=== PATIENT | female | born 1970 | race Caucasian/White ===

== ENCOUNTER 2019-02-27 05:30 | Outpatient (CLI) | payer BC, OTHER ==
[2019-02-25 12:10] LABS: BASOPHILS 0.7 % (0-2); EOSINOPHILS 6.4 % (0-7); HEMATOCRIT 38.2 % (36.0-48.0); HEMOGLOBIN 12.6 g/dL (12-16); IMMATURE GRANULOCYTES 0.3 % (0-5); LYMPHOCYTES 28.7 % (15-50); MCH 30.2 pg (26.0-34.0); MCV 91.6 fL (80.0-100.0); MEAN PLATELET VOLUME 8.5 fL (7.4-10.4); MONOCYTES 5.9 % (2-11); PLATELET COUNT 266 10x3/uL (130-400); RBC 4.17 10x6/uL (4.00-5.40); RDW 12.8 % (11.5-14.5); WBC 6.8 10x3/uL (4.8-10.8)
[2019-02-25 12:27] LABS: ANION GAP 11.1 mmol/L (8-16); CARBON DIOXIDE 29.1 mmol/L (21.0-32.0); CREATININE - SERUM 0.9 mg/dL (0.6-1.3); POTASSIUM - SERUM 4.2 mmol/L (3.5-5.1)
[~2019-02-27] VITALS: Ht 165.1 cm; Wt 103.0 kg
[~2019-02-27 05:30] MED LIST: MUCINEX600 MG PO; VITAMIN D250000 UNIT PO
[2019-02-27 06:34] LABS: HCG URINE NEGATIVE (NEGATIVE)
[2019-02-27 07:00] VITALS: BP 126/78; Ht 165.1 cm; Wt 103.0 kg
--- NOTE | 2019-02-27 13:53 | NUR ---
1045 DR GORDON CORPORATE TREASURER CAME TO TALK WITH PT ABOUT RESCHEDULING SURGERY. PT WANTED TO WAIT NO TIME GIVEN TO PT. 1230 PT DIDNT WANT TO STAY AND WANTED TO CANCEL SURGERY, SURGERY NOTIFIED AND IV REMOVED. 1245 PT D/C HOME WITH RESCHEDULED TIME
== END 2019-02-27 10:50 | disposition home or self-care (01) ==
LOC: D.OPS 05:30 → D.PAN 07:30 → EDSTATUS 07:30 → D.OPS 10:50
PROVIDERS: ATTEND Student in an Organized Health Care Education/Training Program
DX: N92.0 Excessive and frequent menstruation with regular cycle (principal); D25.9 Leiomyoma of uterus, unspecified; Z53.29 Procedure and treatment not carried out because of patient's decision for other reasons

== ENCOUNTER 2019-04-24 05:00 | Day surgery (SDC) | payer MEDICARE ==
[2019-04-22 15:57] LABS: BASOPHILS 0.4 % (0-2); EOSINOPHILS 2.5 % (0-7); HEMATOCRIT 38.4 % (36.0-48.0); HEMOGLOBIN 13.1 g/dL (12-16); IMMATURE GRANULOCYTES 0.3 % (0-5); LYMPHOCYTES 28.2 % (15-50); MCH 30.3 pg (26.0-34.0); MCHC 34.1 g/dL (31.0-37.0); MCV 88.9 fL (80.0-100.0); MEAN PLATELET VOLUME 8.5 fL (7.4-10.4); MONOCYTES 6.2 % (2-11); NEUTROPHILS 62.4 % (40-80); PLATELET COUNT 288 10x3/uL (130-400); RBC 4.32 10x6/uL (4.00-5.40); RDW 12.6 % (11.5-14.5); WBC 7.9 10x3/uL (4.8-10.8)
[2019-04-22 16:08] LABS: CALCIUM 9.2 mg/dL (8.5-10.1); CARBON DIOXIDE 26.5 mmol/L (21.0-32.0); CREATININE - SERUM 1.2 mg/dL (0.6-1.3); POTASSIUM - SERUM 3.5 mmol/L (3.5-5.1)
[~2019-04-24] VITALS: Ht 165.1 cm; Wt 102.7 kg
[2019-04-24] VITALS (11 sets, daily range): BP systolic 110–145; BP diastolic 62–88; BMI 37.8
[2019-04-24 05:58] LABS: HCG URINE NEGATIVE (NEGATIVE)
--- NOTE | 2019-04-24 10:10 | NUR ---
ILDEFONSO REF [id number] LOT [id number] EXP 01/10/2024
--- NOTE | 2019-04-24 13:02 | NUR ---
SITTING UP, TALKING, VISITOR AT BEDSIDE. ICE CHIPS GIVEN. NO C/O PAIN AT THIS TIME.
--- NOTE | 2019-04-24 14:23 | NUR ---
SITTING UP IN BED, FAMILY AT BEDSIDE. HAD PATIENT DEMONSTRATE INCENTIVE SPIROMETER. ABLE TO MEET PARAMETERS ON DEVICE. INSTRUCTED TO USE SPIROMETER 5-6X PER HOUR, TAKING 3-4 DEEP BREATHS WITH EACH USE. STATE UNDERSTANDING.
--- NOTE | 2019-04-24 16:00 | NUR ---
IV SALINE LOCKED. MELGAR D/C'D. MOTRIN GIVEN. DAUGHTER AT BEDSIDE. ENCOURAGED PATIENT TO AMBULATE.
--- NOTE | 2019-04-24 18:00 | NUR ---
NAUSEATED AND VOMITING. OFFERED MEDICATION.
--- NOTE | 2019-04-24 18:40 | NUR ---
C/O PAIN. PO PAIN MED GIVEN. STATES HAS BEEN USING INCENTIVE SPIROMETER. HAS AMBULATED IN THE [place] X1 AND IN HER ROOM. VOIDING WITHOUT DIFFICULTY.
--- NOTE | 2019-04-24 20:19 | NUR ---
PT IS SITTING ON SIDE OF THE BED TALKING WITH DAUGHTER. SHE HAS NO PAIN AT THIS TIME. HEART SOUNDS WNL, LUNGS CLEAR, BS NEGATIVE. PT IS USING HER INCENTIVE SPIROMETER EVERY HOUR SHE STATES. SHE IS UP IN HER ROOM AD PATIENCE. SHE IS NOT WEARING HER SCD'S AND DOES NOT WANT THEM PLACED AT THIS TIME. SHE IS EATING AND DRINKING WITHOUT PROBLEMS. INCISION SITE LOOKS GOOD. NO DRAINAGE NOTED. SHE HAS SCANT BLEEDING ON HER PAD.
--- NOTE | 2019-04-24 21:00 | NUR ---
PT WALKED HER DAUGHTER TO THE EXIT OF WOMEN[facility]S SERVICES. SHE AMBULATES WELL.
--- NOTE | 2019-04-24 21:56 | NUR ---
PT GIVEN HER SCHEDULED MOTRIN. SHE RATES HER PAIN A 4. PT ALSO REQUESTED THE AMBIEN THAT IS ORDERED FOR HER. SHE STATES THE PERCOCET "WIRES" HER. SHE HOPES TO SLEEP WITH THE MEDICATION.
--- NOTE | 2019-04-24 22:40 | NUR ---
CHECKED ON PT TO SEE IF SHE WAS SLEEPING. SHE IS AWAKE WATCHING TV BUT STATES IT WON'T BE LONG BEFORE SHE GOES TO SLEEP. NO C/0 OR NEEDS AT THIS TIME. WATER WAS SERVED.
--- NOTE | 2019-04-25 | NUR ---
CHECKED IN ON PT. SHE IS RESTING QUIETLY WITH HER EYES CLOSED.
[2019-04-25 00:30] VITALS: BP 110/60
--- NOTE | 2019-04-25 02:07 | NUR ---
PT IS RESTING QUIETLY WITHOUT C/0.
[2019-04-25 04:04] VITALS: BP 117/65
--- NOTE | 2019-04-25 04:08 | NUR ---
VS TAKEN AND RECORDED. PT STATES SHE IS STARTING TO HAVE PAIN AT HER INCISION SITE. SCHEDULED MOTRIN GIVEN PO AND PT REQUEST A PERCOCET. 10 MG PERCOCET GIVEN PO. PT STATES SHE HAS SLEPT WELL AFTER TAKING AMBIEN LAST NIGHT. SHE HAS BEEN UP TO VOID X 1.
--- NOTE | 2019-04-25 06:00 | NUR ---
PT RESTING WITH EYES CLOSED. NO C/O OR NEEDS AT THIS TIME.
[2019-04-25 07:14] LABS: BASOPHILS 0.2 % (0-2); EOSINOPHILS 0 % (0-7); HEMATOCRIT 33.2 % (36.0-48.0); HEMOGLOBIN 10.8 g/dL (12-16); IMMATURE GRANULOCYTES 0.2 % (0-5); LYMPHOCYTES 12.2 % (15-50); MCH 29.8 pg (26.0-34.0); MCHC 32.5 g/dL (31.0-37.0); MCV 91.5 fL (80.0-100.0); MEAN PLATELET VOLUME 8.6 fL (7.4-10.4); MONOCYTES 6.4 % (2-11); PLATELET COUNT 244 10x3/uL (130-400); RBC 3.63 10x6/uL (4.00-5.40); RDW 12.6 % (11.5-14.5); WBC 13.1 10x3/uL (4.8-10.8)
--- NOTE | 2019-04-25 07:27 | NUR ---
RECEIVED SHIFT REPORT FROM MARK GONAZLEZ RN, INFORMED PT THAT I WILL BE BACK SHORTLY TO DO ASSESSMENT, PT VERBALIZES UNDERSTANDING, DENIES NEEDS, BREAKFAST SERVED
[2019-04-25 08:15] VITALS: BP 118/70
--- NOTE | 2019-04-25 08:15 | NUR ---
ASSESSMENT PER ADMISSION FLOW SHEET, ADMISSION FLOW SHEET FILLED OUT AT 0847, VS OBTAINED, SALINE LOCK IN LEFT HAND INTACT WITH NO REDNESS OR EDEMA, UMBILICAL INC AND 2 LOWER LAP INC WITH DERMABOND CDI WITH NO DRAINAGE NOTED, PT INST ON INC CARE, PT VERBALIZES UNDERSTANDING, PT REPORTS FLATUS, NO BM, VOIDING WITH NO DIFFICULTY, AND SCANT VAG BLEEDING, PT C/O CRAMPING, WILL ADM PAIN MED, BREAKFAST TRAY REMOVED
--- NOTE | 2019-04-25 08:27 | NUR ---
ADM PERCOCET PER MD ORDERS, SEE EMAR, PT DENIES FURTHER NEEDS
[2019-04-25 08:49] VITALS: BP 118/70; Ht 165.1 cm; Wt 102.7 kg
--- NOTE | 2019-04-25 09:05 | NUR ---
PT RESTING, DR MUÑOZ WAS IN TO SEE PT, WILL DO A CBC AT NOON, PT RATES PAIN 08/22, PT INQUIRES ABOUT A ABD BINDER, INFORMED PT THAT I WILL CHECK ON THAT, DENIES FURTHER NEEDS AT THIS TIME
--- NOTE | 2019-04-25 09:59 | NUR ---
PT AWAKE, LOOKING AT CELL PHONE, ADM JEAN PER MD ORDERS, SEE EMAR, PT DENIES NEEDS AT THIS TIME
--- NOTE | 2019-04-25 11:00 | NUR ---
PT AWAKE, REPORTS JUST DOZING, RATES CRAMPING 3/10, DENIES NEEDS AT THIS TIME
--- NOTE | 2019-04-25 12:22 | NUR ---
PT SITTING UP IN BED, JUST GETTING READY TO EAT LUNCH, PT INST TO USE CALL LIGHT WHEN FINISHED AND I WILL DO VS AND ADM PAIN MED IF NEEDED, PT VERBALIZES UNDERSTANDING, DENIES NEEDS AT THIS TIME
[2019-04-25 12:26] LABS: BASOPHILS 0.2 % (0-2); EOSINOPHILS 0.3 % (0-7); HEMATOCRIT 31.9 % (36.0-48.0); HEMOGLOBIN 10.1 g/dL (12-16); IMMATURE GRANULOCYTES 0.3 % (0-5); LYMPHOCYTES 15.9 % (15-50); MCH 29.2 pg (26.0-34.0); MCHC 31.7 g/dL (31.0-37.0); MCV 92.2 fL (80.0-100.0); MEAN PLATELET VOLUME 8.3 fL (7.4-10.4); MONOCYTES 5.2 % (2-11); NEUTROPHILS 78.1 % (40-80); PLATELET COUNT 207 10x3/uL (130-400); RBC 3.46 10x6/uL (4.00-5.40); RDW 12.9 % (11.5-14.5); WBC 10.8 10x3/uL (4.8-10.8)
--- NOTE | 2019-04-25 12:58 | OP ---
PATIENT NAME: ENRIQUETA BASILIO MEDICAL RECORD: [id number] :66 LOCATION:[facility] ADMISSION DATE: SURGEON: CAROLINE MUÑOZ DO DATE OF OPERATION: 04/24/2019 PREOPERATIVE DIAGNOSIS: Fibroid uterus. POSTOPERATIVE DIAGNOSIS: Fibroid uterus. PRIMARY SURGEON: Caroline Muñoz DO DIRECTOR PHONE SURGEON: Dr. Rogers. ANESTHESIA: Carlyle Dyer CRNA PROCEDURE: Total laparoscopic hysterectomy, bilateral salpingo-oophorectomy. FINDINGS: Normal appearing external genitalia, normal appearing vaginal vault. Normal appearing cervix. Uterus sounded to 8 cm. Enlarged fibroid uterus, normal appearing bilateral fallopian tubes, and bilateral ovaries. SPECIMENS: Uterus, cervix, bilateral fallopian tubes, and bilateral ovaries. ESTIMATED BLOOD LOSS: 75 cc. IV FLUIDS: 1800 cc. URINE OUTPUT: 125 cc clear urine. COMPLICATIONS: None. CONDITION: Stable. PROCEDURE: The risks, benefits, alternatives, and indications of the procedure were discussed with the patient. She voiced understanding of the procedure and signed a consent. She was taken to the OR where general anesthesia was administered and found to be adequate. She was placed in the dorsal lithotomy position. She was prepped and draped in normal sterile fashion. A Evans catheter was placed under sterile conditions. A speculum was placed in the posterior aspect of the vagina and a single tooth tenaculum was used to grasp the anterior lip of the cervix. The uterus was sounded to 8 cm. The cervix was further dilated to accommodate the VCare uterine manipulator. The VCare uterine manipulator was placed and all other instruments were removed from the vagina. Gloves were changed and attention was then turned to the abdomen. The abdomen was elevated. Marcaine was placed in the umbilical fold and a 5-mm incision was made with the scalpel in the umbilical fold. A 5-mm port was placed with the laparoscope for visualization. Pneumoperitoneum was established to 15 mmHg. The uterus was elevated out of the pelvis and steep Trendelenburg position was used to displace the bowel out of the pelvis. Uterine cornua was grasped with an atraumatic grasper and the uterus was gently retracted to the opposite side. The infundibulopelvic ligament was noted on the left side and the ureter was seen across the external iliac artery and pelvic brim with peristalsis. The Thunderbeat was used to coagulate the IP ligament and cut with good hemostasis. With the uterus and adnexa retracted to the opposite side, the round and broad ligaments were sequentially clamped and cut. The vesicouterine peritoneum was OPERATIVE REPORT [id number] ENRIQUETA BASILIO and the bladder was dissected off the lower uterine segment and upper vagina. The uterine vessels were identified along the uterus and the Thunderbeat device was used to coagulate and cut the uterine vessels. The entire procedure was repeated on the right side with the SEA uterine manipulator pushing the uterus into the pelvis, the cervicovaginal junction was then delineated by the colpotomy ring, which was apparent through the tissue. The vagina was entered with a Thunderbeat and incised circumferentially along the cervicovaginal junction. The uterosacral and cardinal ligament complexes and vagina were completely detached from the cervix. Bleeding spots were coagulated. The uterus, tubes, and ovaries were removed through the vagina. The vaginal cuff was closed laparoscopically with interrupted stitches with the EndoStitch device with good hemostasis noted. All the pedicles were reinspected and noted to be hemostatic. The pelvis was irrigated with warm sterile water and again good hemostasis was noted. Diony was placed. The patient was taken out of Trendelenburg position. All instruments were removed from the abdomen. The skin incision was closed with 3-0 Monocryl with Dermabond covering and good hemostasis. The patient tolerated the procedure well. All needle, lap, sponge, and instrument counts were correct times 2. The patient was awakened and taken to the recovery room in stable condition. TRANSINT:[id number] Voice Confirmation ID: [id number] DOCUMENT ID: [id number] CAROLINE MUÑOZ DO at 1258 CC: [id number] DICTATION DATE: 04/24/19 1459 TICKET SCHEDULER: 04/24/19 1116 [facility] [address] [id number]
[2019-04-25 13:26] VITALS: BP 112/63
--- NOTE | 2019-04-25 13:26 | NUR ---
PT INFORMED OF DISCHARGE ORDERS, PT VERBALIZES UNDERSTANDING, VS OBTAINED, ASSISTED WITH ABD BINDER, PERCCAROLA PER MD ORDERS, SEE EMAR, INFORMED PT THAT I WILL GET DISCHARGE ORDERS TOGETHER, PT VERBALIZES UNDERSTANDING, DENIES FURTHER NEEDS
--- NOTE | 2019-04-25 13:26 | NUR ---
LATE ENTRY: SALINE LOCK REMOVED, TIP INTACT, PRESSURE HELD, BANDAID APPLIED
[2019-04-25] MEDS ORDERED: PERCOCET 5-3251 TAB PO (13:49)
--- NOTE | 2019-04-25 14:06 | NUR ---
PT READY FOR DISCHARGE, WENT OVER ALL DISCHARGE INST AND PRESCRIPTION WITH PT, PT VERBALIZES UNDERSTANDING, REPORTS THAT HER FRIEND IS WAITING OUT FRONT FOR HER, INFORMED PT THAT A VOLUNTEER WILL BE HERE TO TAKE HER OUT, PT VERBALIZES UNDERSTANDING
--- NOTE | 2019-04-25 14:15 | NUR ---
PT DISCHARGED VIA HOME WITH ALL BELONGINGS, DISCHARGE PAPER WORK AND PRESCRIPTION
== END 2019-04-25 14:15 | disposition home or self-care (01) ==
LOC: D.OPS 05:00 → D.WS 11:09 → D.OPS 11:30
PROVIDERS: ATTEND Student in an Organized Health Care Education/Training Program
DX: D25.9 Leiomyoma of uterus, unspecified (principal); N93.9 Abnormal uterine and vaginal bleeding, unspecified